=== PATIENT | female | born 1975 | race Caucasian/White ===

== ENCOUNTER → 2017-03-08 | Outpatient (CLI) | payer OTHER ==
[2017-03-08 08:24] LABS: Basophils % (A) 0 %; CH 29.4; CHCM 32.9; Eosinophils % (A) 1 %; HCT 40.7 % (34.0-46.0); HDW 2.73; HGB 13.1 gm/dL (11.4-16.0); Luc # (Auto) 0.13; Luc % (Auto) 2; Lymphocytes # (A) 1.6 k/uL (1.0-4.8); Lymphocytes % (A) 26 %; MCH 28.9 pg (25.0-35.0); MCHC 32.3 g/dL (31.0-37.0); MCV 89.5 fL (80.0-100.0); Mean Platelet Volume 8.1; Monocytes # (A) 0.3 k/uL (0-1.0); Monocytes % (A) 5 %; Neutrophils # (A) 4.1 k/uL (1.3-7.7); Neutrophils % (A) 66 %; RBC 4.54 m/uL (3.80-5.40); RDW 14.4 % (11.5-15.5); WBC 6.2 k/uL (3.8-10.6); WBC (Perox) 6.45
[2017-03-08 09:25] LABS: ALT 29 U/L (9-52); AST 18 U/L (14-36); Alkaline Phosphatase 48 U/L (38-126); Anion Gap 9 mmol/L; Blood Urea Nitrogen 7 mg/dL (7-17); Carbon Dioxide 26 mmol/L (22-30); Chloride 106 mmol/L (98-107); Cholesterol 300 mg/dL (<200); Glucose 94 mg/dL (74-99); HDL Cholesterol 56 mg/dL (40-60); Non-African American GFR(MDRD) >60 (>60 ml/min/1.73 sqM); Potassium 4.5 mmol/L (3.5-5.1); Sodium 141 mmol/L (137-145); Total Bilirubin 0.5 mg/dL (0.2-1.3); Total Protein 6.6 g/dL (6.3-8.2)
== END | disposition home or self-care (01) ==
LOC: LABWHC1 07:41
PROVIDERS: ATTEND Internal Medicine
DX: E03.9 Hypothyroidism, unspecified (principal); I10 Essential (primary) hypertension; E78.2 Mixed hyperlipidemia
CPT/HCPCS: 36415; 80053; 80061; 84439; 84443; 85025

== ENCOUNTER → 2017-12-18 | Outpatient (CLI) | payer OTHER ==
--- NOTE | 2017-12-18 15:03 | XR ---
EXAMINATION TYPE: XR chest 2V DATE OF EXAM: 12/18/2017 COMPARISON: 11/15/2015 INDICATION: Cough x6 weeks TECHNIQUE: Frontal and lateral views of the chest are obtained. FINDINGS: The heart size is normal. The pulmonary vasculature is normal. The lungs are clear. IMPRESSION: 1. No acute pulmonary process.
== END | disposition home or self-care (01) ==
LOC: RADXRMAIN 14:40
PROVIDERS: ATTEND Internal Medicine
DX: R05 Cough (principal)
CPT/HCPCS: 71046

== ENCOUNTER → 2019-06-02 | Outpatient (CLI) | payer OTHER ==
--- NOTE | 2019-06-02 11:33 | MM ---
Reason for exam: screening (asymptomatic). Baseline mammogram. History: Family history of breast cancer in maternal aunt at age 45. Physical Findings: Nurse did not find any significant physical abnormalities on exam. MG 3D Screening Mammo W/Cad Bilateral CC and MLO view(s) were taken. XCCL view(s) were taken of the left breast. There are scattered fibroglandular densities. Benign appearing bilateral calcifications. No suspicious abnormality. These results were verbally communicated with the patient and result sheet given to the patient on 06/02/19. ASSESSMENT: Benign, BI-RAD 2 RECOMMENDATION: Routine screening mammogram of both breasts in 1 year.
== END | disposition home or self-care (01) ==
LOC: RADMAMWWP 10:04
PROVIDERS: ATTEND Internal Medicine
DX: Z12.31 Encounter for screening mammogram for malignant neoplasm of breast (principal)
CPT/HCPCS: 77063; 77067

== ENCOUNTER → 2020-09-01 | Outpatient (CLI) | payer OTHER ==
--- NOTE | 2020-09-05 12:18 | MM ---
Reason for exam: screening (asymptomatic). Last mammogram was performed 1 year and 3 months ago. History: Family history of breast cancer in maternal aunt at age 45. Physical Findings: A clinical breast exam by your physician is recommended on an annual basis and results should be correlated with mammographic findings. MG 3D Screening Mammo W/Cad Bilateral CC and MLO view(s) were taken. Prior study comparison: June 02, 2019, bilateral MG 3d screening mammo w/cad. There are scattered fibroglandular densities. No significant changes when compared with prior studies. ASSESSMENT: Benign, BI-RAD 2 RECOMMENDATION: Routine screening mammogram of both breasts in 1 year.
== END | disposition home or self-care (01) ==
LOC: RADMAMWWP 09:12
PROVIDERS: ATTEND Internal Medicine
DX: Z12.31 Encounter for screening mammogram for malignant neoplasm of breast (principal)
CPT/HCPCS: 77063; 77067

== ENCOUNTER → 2021-02-09 | Outpatient (CLI) | payer OTHER ==
--- NOTE | 2021-02-11 09:02 | US ---
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 pelvic cramping x cou ple months, 4, para 3, 1 TECHNIQUE: Transvaginal only per ordering physician Date of LMP: November 2020 EXAM MEASUREMENTS: Uterus: 7.6 x 4.4 x 5.2 cm Endometrial Stripe: 0.5 cm Right Ovary: not seen Left Ovary: 4.7 x 3.7 x 3.8 cm 1. Uterus: heterogeneous 2. Endometrium: wnl 3. Right Ovary: not seen due to overlying bowel gas 4. Left Ovary: 3.0 x 2.4 x 3.2cm 5. Bilateral Adnexa: wnl 6. Posterior cul-de-sac: wnl IMPRESSION: Nonspecific uterine enlargement. Nonvisualization right ovary without adnexal mass.
== END | disposition home or self-care (01) ==
LOC: RADUSWWP 15:28
PROVIDERS: ATTEND Obstetrics & Gynecology Gynecology
DX: D07.1 Carcinoma in situ of vulva (principal); N85.2 Hypertrophy of uterus; B37.2 Candidiasis of skin and nail
CPT/HCPCS: 76830

== ENCOUNTER 2021-04-26 08:01 | Emergency (ER) | payer OTHER ==
[2021-04-26 08:09] VITALS: RESP 18; TEMP 98.2
--- NOTE | 2021-04-26 08:19 | ED ---
URI HPI - General Chief Complaint: Upper Respiratory Infection Stated Complaint: chest & head congestion Time Seen by Provider: 04/26/21 08:08 Source: patient, RN notes reviewed Mode of arrival: ambulatory Limitations: no limitations - History of Present Illness Initial Comments: Patient is a 45-year-old female presenting to the ER today for cough congestion and upper respiratory like symptoms that have been present since last . Patient states she feels short of breath, needs to cough up congestion in her lungs. Patient states she has been taking Mucinex without relief, also starting doxycycline for the past week of old prescription she had at the house. Patient described external weakness and fatigue with worsening shortness of breath with activity. Patient denies any fevers, nausea or vomiting. Patient states child was getting over RSV at home, with others in the house also having upper respiratory symptoms. - Related Data Home Medications Medication Instructions Recorded Confirmed Albuterol Sulfate [Proair Hfa] 2 puff INHALATION RT-Q4H PRN 04/26/21 04/26/21 Cyclobenzaprine [Flexeril] 10 mg PO DAILY 04/26/21 04/26/21 Doxycycline Hyclate [Vibramycin] 100 mg PO BID 04/26/21 04/26/21 Ezetimibe [Zetia] 10 mg PO HS 04/26/21 04/26/21 HYDROcodone/APAP 10-325MG [[place] 1 tab PO QID 04/26/21 04/26/21 10-325] Hydrochlorothiazide 12.5mg Tab 12.5 mg PO DAILY 04/26/21 04/26/21 Lansoprazole 30 mg PO BID 04/26/21 04/26/21 Losartan [Cozaar] 50 mg PO DAILY 04/26/21 04/26/21 Nystatin 100,000 Unit/gm Powd 1 applic TOPICAL DAILY 04/26/21 04/26/21 [Mycostatin Powder] Rosuvastatin Calcium [Crestor] 40 mg PO HS 04/26/21 04/26/21 clonazePAM [KlonoPIN] 1 mg PO BID 04/26/21 04/26/21 guaiFENesin [Mucinex] 600 mg PO Q12H 04/26/21 04/26/21 traMADol HCL 50 mg PO TID 04/26/21 04/26/21 Previous Rx's Medication Instructions Recorded Clarithromycin [Biaxin] 500 mg PO Q12HR #20 tablet 04/26/21 predniSONE 50 mg PO DAILY #5 tab 04/26/21 Allergies Allergy/AdvReac Type Severity Reaction Status Date / Time No Known Allergies Allergy Verified 04/26/21 09:33 Review of Systems ROS Statement: Those systems with pertinent positive or pertinent negative responses have been documented in the HPI. ROS Other: All systems not noted in ROS Statement are negative. Past Medical History Past Medical History: GERD/Reflux, Hyperlipidemia, Thyroid Disorder Additional Past Medical History / Comment(s): PALPITATIONS, Patient states she stopped taking Synthroid >6 months with with PCP approval. History of Any Multi-Drug Resistant Organisms: MRSA, None Reported Date of last positivie culture/infection: 10/16/2015 MDRO Source:: axilla right Past Surgical History: Bladder Surgery Additional Past Surgical History / Comment(s): Jaw Surgery Past Anesthesia/Blood Transfusion Reactions: No Reported Reaction Past Psychological History: Anxiety Smoking Status: Current every day smoker Past Alcohol Use History: None Reported, Occasional Past Drug Use History: None Reported - Past Family History Mother Family Medical History: Cancer Additional Family Medical History / Comment(s): lung cancer Father Family Medical History: Diabetes Mellitus, Hypertension, Myocardial Infarction ([place]) General Exam Limitations: no limitations General appearance: alert, in no apparent distress Head exam: Present: atraumatic, normocephalic, normal inspection Eye exam: Present: normal appearance, PERRL, EOMI. Absent: scleral icterus, conjunctival injection, periorbital swelling ENT exam: Present: normal exam, normal oropharynx, mucous membranes moist Neck exam: Present: normal inspection, full ROM. Absent: tenderness, meningismus, lymphadenopathy Respiratory exam: Present: wheezes. Absent: normal lung sounds bilaterally, respiratory distress, rales, rhonchi, stridor Cardiovascular Exam: Present: regular rate, normal rhythm, normal heart sounds. Absent: systolic murmur, diastolic murmur, rubs, gallop, clicks Skin exam: Present: warm, dry, intact, normal color. Absent: rash Course Vital Signs 04/26/21 08:02 Temperature 98.2 F Pulse Rate 90 Respiratory 18 Rate Blood Pressure 114/63 O2 Sat by Pulse 97 Oximetry Medical Decision Making - Medical Decision Making This is a 45-year-old presented for cough congestion COVID-19 negative x-ray does not show any significant abnormality. Patient does have some coarse some wheezing was treated with DuoNeb steroids discharged in stable condition. - Lab Data Lab Results 04/26/21 Range/Units 09:13 Coronavirus (PCR) Not Detected (Not Detectd) Disposition Clinical Impression: Bronchitis Disposition: HOME SELF-CARE Condition: Stable Instructions (If sedation given, give patient instructions): Upper Respiratory Infection (ED) Additional Instructions: Please return to the Emergency Department if symptoms worsen or any other concerns. Prescriptions: Clarithromycin [Biaxin] 500 mg PO Q12HR #20 tablet predniSONE 50 mg PO DAILY #5 tab Is patient prescribed a controlled substance at d/c from ED?: No Referrals: Moises Fine MD [Primary Care Provider] - 1-2 days Time of Disposition: 10:02
--- NOTE | 2021-04-26 09:01 | XR ---
EXAMINATION TYPE: XR chest 2V DATE OF EXAM: 04/26/2021 COMPARISON: NONE chest x-ray December 18, 2017 HISTORY: Shortness of breath and congestion. TECHNIQUE: Frontal and lateral views of the chest are obtained. FINDINGS: There is no suspicious new focal air space opacity, pleural effusion, or pneumothorax seen . The cardiac silhouette size is stable and within normal limits. The osseous structures are intac t. IMPRESSION: No acute cardiopulmonary process. No significant change from prior.
[2021-04-26] MEDS ORDERED: IPRATROPIUM-ALBUTEROL 3 ML NEB INHALATION STA (09:58)
[2021-04-26 10:54] VITALS: BP 134/91; PULSE 85
== END 2021-04-26 10:54 | disposition home or self-care (01) ==
LOC: EC 08:01
DX: J40 Bronchitis, not specified as acute or chronic (principal); E78.5 Hyperlipidemia, unspecified; F17.200 Nicotine dependence, unspecified, uncomplicated; K21.9 Gastro-esophageal reflux disease without esophagitis; Z79.899 Other long term (current) drug therapy; Z20.822 Contact with and (suspected) exposure to COVID-19
CPT/HCPCS: 71046; 87635; 94640; 99285

== ENCOUNTER 2022-05-02 16:58 | Emergency (ER) | payer OTHER ==
--- NOTE | 2022-05-02 18:00 | ED ---
General Adult HPI - General Chief complaint: Abdominal Pain Stated complaint: ABD PAIN Time Seen by Provider: 05/02/22 17:44 Source: patient Mode of arrival: ambulatory Limitations: no limitations - History of Present Illness Initial comments: Dictation was produced using [employer] dictation software. please excuse any grammatical, word or spelling errors. Chief Complaint: 46-year-old female presents to the emergency department for lef t lower quadrant abdominal pain. History of Present Illness: Patient is a 46-year-old female presents with left- sided abdominal pain. Patient states she was diagnosed with urinary tract infection recently. She states that there was some delay in when she initiated antibiotics. Patient has any CVA pain. Over the last 3-4 days she's developed left-sided abdominal pain. She has had a colonoscopy for that suggest that she had diverticulosis. Denies any fever. She does complain of some mild nausea. No changes in bowel habits. States that her pain is worse whenever she tries to sit up or flex at the hips. No constitutional symptoms. Denies any history of diverticulitis. The ROS documented in this emergency department record has been reviewed and confirmed by me. Those systems with pertinent positive or negative responses have been documented in the HPI. All other systems are other negative and/or noncontributory. PHYSICAL EXAM: General Impression: Alert and oriented x3, not in acute distress HEENT: Normocephalic atraumatic, extra-ocular movements intact, pupils equal and reactive to light bilaterally, mucous membranes moist. Cardiovascular: Heart regular rate and rhythm Chest: Able to complete full sentences, no retractions, no tachypnea Abdomen: abdomen soft, mild tenderness with palpation to the left mid and left lower abdomen, no pain at McBurney's point, negative Acosta's sign, non- distended, no organomegaly Musculoskeletal: Pulses present and equal in all extremities, no peripheral edema Motor: no focal deficits noted Neurological: CN II-XII grossly intact, no focal motor or sensory deficits noted Skin: Intact with no visualized rashes Psych: Normal affect and mood ED course: 46-year-old female presents emergency department for chief complaint of left lower abdominal pain. Signs upon arrival are within acceptable limits. Laboratory evaluation obtained. CBC unremarkable. Metabolic panel shows mild lactic acidosis of 2.1. There does appear to be white blood cells however 30. Computed tomography scan abdomen and pelvis shows acute sigmoid diverticulitis. Radiographic images not show any, getting processes. No free air or abscess. Patient reevaluated at the bedside at 8:00 PM found to be in stable medical condition. Patient is agreeable for discharge. She is given prescription for Augmentin. Patient advised follow primary care doctor. Return precautions discussed. Patient discharged. - Related Data Home Medications Medication Instructions Recorded Confirmed Albuterol Sulfate [Proair Hfa] 2 puff INHALATION RT-Q4H PRN 04/26/21 04/26/21 Cyclobenzaprine [Flexeril] 10 mg PO DAILY 04/26/21 04/26/21 Doxycycline Hyclate [Vibramycin] 100 mg PO BID 04/26/21 04/26/21 Ezetimibe [Zetia] 10 mg PO HS 04/26/21 04/26/21 HYDROcodone/APAP 10-325MG [[place] 1 tab PO QID 04/26/21 04/26/21 10-325] Hydrochlorothiazide 12.5mg Tab 12.5 mg PO DAILY 04/26/21 04/26/21 Lansoprazole 30 mg PO BID 04/26/21 04/26/21 Losartan [Cozaar] 50 mg PO DAILY 04/26/21 04/26/21 Nystatin 100,000 Unit/gm Powd 1 applic TOPICAL DAILY 04/26/21 04/26/21 [Mycostatin Powder] Rosuvastatin Calcium [Crestor] 40 mg PO HS 04/26/21 04/26/21 clonazePAM [KlonoPIN] 1 mg PO BID 04/26/21 04/26/21 guaiFENesin [Mucinex] 600 mg PO Q12H 04/26/21 04/26/21 traMADol HCL 50 mg PO TID 04/26/21 04/26/21 Previous Rx's Medication Instructions Recorded Clarithromycin [Biaxin] 500 mg PO Q12HR #20 tablet 04/26/21 predniSONE 50 mg PO DAILY #5 tab 04/26/21 Amoxic-Pot Clav 875-125Mg 1 tab PO TID 5 Days #15 tab 05/02/22 [Augmentin 875-125] Allergies Allergy/AdvReac Type Severity Reaction Status Date / Time No Known Allergies Allergy Verified 05/02/22 17:06 Review of Systems ROS Statement: Those systems with pertinent positive or pertinent negative responses have been documented in the HPI. ROS Other: All systems not noted in ROS Statement are negative. Past Medical History Past Medical History: GERD/Reflux, Hyperlipidemia, Thyroid Disorder Additional Past Medical History / Comment(s): PALPITATIONS, Patient states she stopped taking Synthroid >6 months with with PCP approval. History of Any Multi-Drug Resistant Organisms: MRSA, None Reported Date of last positivie culture/infection: 10/16/2015 MDRO Source:: axilla right Past Surgical History: Bladder Surgery Additional Past Surgical History / Comment(s): Jaw Surgery Past Anesthesia/Blood Transfusion Reactions: No Reported Reaction Past Psychological History: Anxiety Smoking Status: Current every day smoker Past Alcohol Use History: Occasional Past Drug Use History: None Reported - Past Family History Mother Family Medical History: Cancer Additional Family Medical History / Comment(s): lung cancer Father Family Medical History: Diabetes Mellitus, Hypertension, Myocardial Infarction ([place]) General Exam Limitations: no limitations Course Vital Signs 05/02/22 17:04 Temperature 98.1 F Pulse Rate 100 Respiratory 20 Rate Blood Pressure 112/66 O2 Sat by Pulse 99 Oximetry Medical Decision Making - Lab Data Result diagrams: 05/02/22 17:56 05/02/22 17:56 Lab Results 05/02/22 05/02/22 05/02/22 Range/Units 17:56 17:56 17:56 WBC 10.8 H (3.8-10.6) k/uL RBC 4.51 (3.80-5.40) m/uL Hgb 14.8 (11.4-16.0) gm/dL Hct 42.0 (34.0-46.0) % MCV 93.1 (80.0-100.0) fL MCH 32.7 (25.0-35.0) pg MCHC 35.1 (31.0-37.0) g/dL RDW 12.8 (11.5-15.5) % Plt Count 241 (150-450) k/uL MPV 8.2 Neutrophils % 73 % Lymphocytes % 20 % Monocytes % 4 % Eosinophils % 2 % Basophils % 0 % Neutrophils # 7.8 H (1.3-7.7) k/uL Lymphocytes # 2.2 (1.0-4.8) k/uL Monocytes # 0.4 (0-1.0) k/uL Eosinophils # 0.2 (0-0.7) k/uL Basophils # 0.0 (0-0.2) k/uL Sodium 138 (137-145) mmol/L Potassium 3.4 L (3.5-5.1) mmol/L Chloride 100 (98-107) mmol/L Carbon Dioxide 26 (22-30) mmol/L Anion Gap 12 mmol/L BUN 8 (7-17) mg/dL Creatinine 0.61 (0.52-1.04) mg/dL Est GFR (CKD-EPI)AfAm >90 (>60 ml/min/1.73 sqM) Est GFR (CKD-EPI)NonAf >90 (>60 ml/min/1.73 sqM) Glucose 162 H (74-99) mg/dL Plasma Lactic Acid Satnam (0.7-2.0) mmol/L Calcium 9.4 (8.4-10.2) mg/dL Total Bilirubin 0.5 (0.2-1.3) mg/dL AST 21 (14-36) U/L ALT 20 (4-34) U/L Alkaline Phosphatase 68 (38-126) U/L Total Protein 6.7 (6.3-8.2) g/dL Albumin 4.3 (3.5-5.0) g/dL Urine Color Yellow Urine Appearance Cloudy H (Clear) Urine pH 5.5 (5.0-8.0) Ur Specific [place] 1.024 (1.001-1.035) Urine Protein Trace H (Negative) Urine Glucose (UA) Negative (Negative) Urine Ketones Negative (Negative) Urine Blood Negative (Negative) Urine Nitrite Negative (Negative) Urine Bilirubin Negative (Negative) Urine Urobilinogen 2.0 (<2.0) mg/dL Ur Leukocyte Esterase Large H (Negative) Urine RBC 3 (0-5) /hpf Urine WBC 10 H (0-5) /hpf Ur Squamous Epith Cells 13 H (0-4) /hpf Urine Mucus Few H (None) /hpf 05/02/22 Range/Units 17:56 WBC (3.8-10.6) k/uL RBC (3.80-5.40) m/uL Hgb (11.4-16.0) gm/dL Hct (34.0-46.0) % MCV (80.0-100.0) fL MCH (25.0-35.0) pg MCHC (31.0-37.0) g/dL RDW (11.5-15.5) % Plt Count (150-450) k/uL MPV Neutrophils % % Lymphocytes % % Monocytes % % Eosinophils % % Basophils % % Neutrophils # (1.3-7.7) k/uL Lymphocytes # (1.0-4.8) k/uL Monocytes # (0-1.0) k/uL Eosinophils # (0-0.7) k/uL Basophils # (0-0.2) k/uL Sodium (137-145) mmol/L Potassium (3.5-5.1) mmol/L Chloride (98-107) mmol/L Carbon Dioxide (22-30) mmol/L Anion Gap mmol/L BUN (7-17) mg/dL Creatinine (0.52-1.04) mg/dL Est GFR (CKD-EPI)AfAm (>60 ml/min/1.73 sqM) Est GFR (CKD-EPI)NonAf (>60 ml/min/1.73 sqM) Glucose (74-99) mg/dL Plasma Lactic Acid Satnam 2.1 H* (0.7-2.0) mmol/L Calcium (8.4-10.2) mg/dL Total Bilirubin (0.2-1.3) mg/dL AST (14-36) U/L ALT (4-34) U/L Alkaline Phosphatase (38-126) U/L Total Protein (6.3-8.2) g/dL Albumin (3.5-5.0) g/dL Urine Color Urine Appearance (Clear) Urine pH (5.0-8.0) Ur Specific [place] (1.001-1.035) Urine Protein (Negative) Urine Glucose (UA) (Negative) Urine Ketones (Negative) Urine Blood (Negative) Urine Nitrite (Negative) Urine Bilirubin (Negative) Urine Urobilinogen (<2.0) mg/dL Ur Leukocyte Esterase (Negative) Urine RBC (0-5) /hpf Urine WBC (0-5) /hpf Ur Squamous Epith Cells (0-4) /hpf Urine Mucus (None) /hpf Disposition Clinical Impression: Diverticulitis Disposition: HOME SELF-CARE Condition: Good Instructions (If sedation given, give patient instructions): Diverticulitis (ED) Prescriptions: Amoxic-Pot Clav 875-125Mg [Augmentin 875-125] 1 tab PO TID 5 Days #15 tab Is patient prescribed a controlled substance at d/c from ED?: No Referrals: Moises Fine MD [STAFF PHYSICIAN] - 1-2 days Time of Disposition: 20:03
[2022-05-02 18:18] LABS: Basophils % (A) 0 %; Eosinophils # (A) 0.2 k/uL (0-0.7); Eosinophils % (A) 2 %; HGB 14.8 gm/dL (11.4-16.0); Lymphocytes # (A) 2.2 k/uL (1.0-4.8); Lymphocytes % (A) 20 %; MCH 32.7 pg (25.0-35.0); MCHC 35.1 g/dL (31.0-37.0); MCV 93.1 fL (80.0-100.0); Mean Platelet Volume 8.2; Monocytes # (A) 0.4 k/uL (0-1.0); Monocytes % (A) 4 %; Neutrophils # (A) 7.8 k/uL (1.3-7.7); Neutrophils % (A) 73 %; Platelet Count 241 k/uL (150-450); RBC 4.51 m/uL (3.80-5.40); RDW 12.8 % (11.5-15.5); WBC 10.8 k/uL (3.8-10.6)
[2022-05-02 18:26] LABS: ALT 20 U/L (4-34); AST 21 U/L (14-36); African American GFR (CKD) >90 (>60 ml/min/1.73 sqM); Albumin 4.3 g/dL (3.5-5.0); Alkaline Phosphatase 68 U/L (38-126); Anion Gap 12 mmol/L; Blood Urea Nitrogen 8 mg/dL (7-17); Calcium 9.4 mg/dL (8.4-10.2); Carbon Dioxide 26 mmol/L (22-30); Chloride 100 mmol/L (98-107); Glucose 162 mg/dL (74-99); Non-African American GFR(CKD) >90 (>60 ml/min/1.73 sqM); Potassium 3.4 mmol/L (3.5-5.1); Sodium 138 mmol/L (137-145); Total Bilirubin 0.5 mg/dL (0.2-1.3); Total Protein 6.7 g/dL (6.3-8.2)
[2022-05-02 18:46] LABS: Appearance,Urine Cloudy (Clear); Bilirubin,Urine Negative (Negative); Blood,Urine Negative (Negative); Color,Urine Yellow; Glucose,Urine (UA) Negative (Negative); Ketones,Urine Negative (Negative); Leukocyte Esterase,Urine Large (Negative); Mucus,Urine Few /hpf; Nitrite,Urine Negative (Negative); PH, Urine 5.5 (5.0-8.0); Protein,Urine Trace (Negative); RBC,Urine 3 /hpf (0-5); Specific Gravity,Urine 1.024 (1.001-1.035); Squamous Epithelial Cell,Urine 13 /hpf (0-4); WBC,Urine 10 /hpf (0-5)
--- NOTE | 2022-05-02 19:27 | CT ---
EXAMINATION TYPE: CT abdomen pelvis w con DATE OF EXAM: 05/02/2022 HISTORY: bladder infection and radiating pain up LLQ CT DLP: 2377 mGycm Automated Exposure Control for Dose Reduction was Utilized. CONTRAST: CT scan of the abdomen and pelvis is performed with IV Contrast, patient injected with 100 mL of Isovue 300. COMPARISON: None. FINDINGS: LUNG BASES: No acute findings. LIVER/GB: No significant abnormality is appreciated. PANCREAS: No significant abnormality is seen. SPLEEN: No significant abnormality is seen. ADRENALS: The right 3.2 cm nodule noted, which appears homogeneously low in its attenuation. This lik yovani represents an incidental adrenal adenoma, which can be proven with stability over time if there i s an outside CT from years past, or with follow-up dedicated adrenal CT or MRI. KIDNEYS: No significant abnormality is seen. A 6 mm nonobstructing lower pole right renal calcificati on noted. BOWEL: In the left lower quadrant there is a 6 cm zone of inflammation surrounding the occipital most sigmoid colon. There is associated diverticula and mural thickening, but no extraluminal gas or flui d collection. Findings are consistent with moderate diverticulitis. Would recommend eventual follow-u p colonoscopy to assure normal underlying mucosa. UTERUS/ADNEXA: No gross abnormality seen. LYMPH NODES: No greater than 1cm abdominal or pelvic lymph nodes are appreciated. VASCULATURE: No acute findings. OSSEOUS STRUCTURES: No significant abnormality is seen. OTHER: No significant additional abnormality is seen. IMPRESSION: 1. Acute sigmoid diverticulitis, moderate in degree. 2. Incidental 3.2 left adrenal nodule, as above.
[2022-05-02] MEDS ORDERED: AMOXIC-POT CLAV 875-125MG 1 EACH TAB PO STA (20:01)
[2022-05-02 20:13] VITALS: BP 145/81; PULSE 87; RESP 18; TEMP 97.8
[2022-05-02] MEDS ORDERED: AMOXIC-POT CLAV 875MG STARTER PACK 2 TAB BTL PO ONE (20:15)
== END 2022-05-02 20:13 | disposition home or self-care (01) ==
LOC: EC 16:58
DX: K57.92 Diverticulitis of intestine, part unspecified, without perforation or abscess without bleeding (principal); K21.9 Gastro-esophageal reflux disease without esophagitis; E78.5 Hyperlipidemia, unspecified; E07.9 Disorder of thyroid, unspecified; F41.9 Anxiety disorder, unspecified; F17.200 Nicotine dependence, unspecified, uncomplicated; Z79.899 Other long term (current) drug therapy
CPT/HCPCS: 36415; 80053; 83605; 85025; 81001; 74177; 99284; Q9967; 93005

== ENCOUNTER → 2023-01-07 | Outpatient (CLI) | payer BC, OTHER ==
--- NOTE | 2023-01-08 19:56 | MM ---
Reason for Exam: Screening (asymptomatic). Last mammogram was performed 1 year(s) and 1 month(s) ago. Patient History: Menarche at age 13. First Full-Term at age 19. Maternal aunt had breast cancer, age 45. Risk Values: Georgie 5 year model risk: 0.6%. NCI Lifetime model risk: 6.9%. Prior Study Comparison: 06/02/2019 Bilateral Screening Mammogram, [facility]. 09/01/2020 Bilateral Screening Mammogram, [facility]. 12/05/2021 Bilateral MG 3D screening mammo w/cad, [facility]. Tissue Density: The breast tissue is almost entirely fat. Findings: Analyzed By CAD. A few small benign oil cyst calcifications. There is no suspicious group of microcalcifications or new suspicious mass in either breast. Overall Assessment: Benign, BI-RAD 2 Management: Screening Mammogram of both breasts in 1 year. . Patient should continue monthly self-breast exams. A clinical breast exam by your physician is recommended on an annual basis. This exam should not preclude additional follow-up of suspicious palpable abnormalities. Note on Georgie scores and lifetime risk: 1. A Georgie score greater than 3% is considered moderate risk. If this is the case, consider specialist referral to assess eligibility for a risk reducing agent. 2. If overall lifetime risk for the development of breast cancer is 20% or higher, the patient may qualify for future screening with alternating mammogram and breast MRI. Electronically signed and approved by: Jassi Martinez M.D. Radiologist
== END | disposition home or self-care (01) ==
LOC: RADMAMWWP 09:11
PROVIDERS: ATTEND Internal Medicine
DX: Z12.31 Encounter for screening mammogram for malignant neoplasm of breast (principal); Z80.3 Family history of malignant neoplasm of breast
CPT/HCPCS: 77063; 77067

== ENCOUNTER → 2023-05-12 | Outpatient (CLI) | payer BC ==
--- NOTE | 2023-05-12 12:23 | MR ---
EXAMINATION TYPE: MR lumbar spine wo con DATE OF EXAM: 05/12/2023 11:45 AM CLINICAL INDICATION:Female, 47 years old with history of M54.5; PHH, Low back pain into buttocks COMPARISON: 05/02/2022 TECHNIQUE: Multi planar, multi sequence imaging was performed utilizing: T1-weighted, T2-weighted, a nd turbo inversion recovery imaging of the lumbar spine. IV Contrast: cc . (None if empty) FINDINGS: Alignment: The lumbar vertebral bodies have preserved heights and alignment. Cord: The conus medullaris and the distal spinal cord appear unremarkable with regards to their signa l intensity and morphology. Bones/Discs: Mild degeneration changes throughout the spine with osteophyte formation and facet joint arthropathy. T11-T12 Modic endplate changes anteriorly of the adjoining endplates. Intervertebral di sc signal is maintained. T12-L1: No evidence of significant spinal canal stenosis or neural foraminal stenosis. L1-L2: No evidence of significant spinal canal stenosis or neural foraminal stenosis. L2-L3: No evidence of significant spinal canal stenosis or neural foraminal stenosis. L3-L4: No evidence of significant spinal canal stenosis or neural foraminal stenosis. L4-L5: No evidence of significant spinal canal stenosis or neural foraminal stenosis. Small bilateral facet joint effusions. L5-S1: The disc is rounded posterior morphology without significant spinal canal stenosis. Facet join t arthropathy with mild bilateral neural foraminal stenosis. Small bilateral facet joint effusions. No significant spinal canal or neural foraminal stenosis in the remainder of the visualized levels. Other findings: None. IMPRESSION: 1. No definitive evidence of disc herniation or significant spinal canal stenosis. 2. Mild disc degeneration with associated osteoarthritic changes.
== END | disposition home or self-care (01) ==
LOC: RADMRIMAIN 10:46
PROVIDERS: ATTEND Internal Medicine
DX: M51.36 Other intervertebral disc degeneration, lumbar region (principal); M47.817 Spondylosis without myelopathy or radiculopathy, lumbosacral region
CPT/HCPCS: 72148

== ENCOUNTER → 2024-05-26 | Outpatient (CLI) | payer BC, OTHER ==
--- NOTE | 2024-05-31 13:30 | MM ---
Reason for Exam: Screening (asymptomatic). Last mammogram was performed 1 year(s) and 5 month(s) ago. Patient History: Menarche at age 13. First Full-Term at age 19. Maternal aunt had breast cancer, age 45. Last menstrual period: Risk Values: Georgie 5 year model risk: 0.6%. NCI Lifetime model risk: 6.8%. Prior Study Comparison: 09/01/2020 Bilateral Screening Mammogram, [facility]. 12/05/2021 Bilateral MG 3D screening mammo w/cad, [facility]. 01/07/2023 Bilateral MG 3D screening mammo w/cad, [facility]. Tissue Density: The breasts are almost entirely fatty. Findings: Analyzed By CAD. Right breast: There is no suspicious group of microcalcifications or new suspicious mass. Benign-appearing calcifications right breast. Left breast: There is no suspicious group of microcalcifications or new suspicious mass. Benign-appearing calcifications left breast. Overall Assessment: Benign, BI-RAD 2 Management: Screening Mammogram of both breasts in [address] [facility] will attempt to contact patient to return for supplemental views and ultrasound if indicated. Patient should continue monthly self-breast exams. A clinical breast exam by your physician is recommended on an annual basis. This exam should not preclude additional follow-up of suspicious palpable abnormalities. Note on Georgie scores and lifetime risk: 1. A Georgie score greater than 3% is considered moderate risk. If this is the case, consider specialist referral to assess eligibility for a risk reducing agent. 2. If overall lifetime risk for the development of breast cancer is 20% or higher, the patient may qualify for future screening with alternating mammogram and breast MRI. [facility], , 05/31/2024 1:27 PM. Electronically signed and approved by: Isaac Beck DO
== END | disposition home or self-care (01) ==
LOC: RADMAMWWP 09:12
PROVIDERS: ATTEND Internal Medicine
DX: Z12.31 Encounter for screening mammogram for malignant neoplasm of breast (principal); Z80.3 Family history of malignant neoplasm of breast
CPT/HCPCS: 77063; 77067